=== PATIENT | female | born 1995 | race African-American/Black ===

== ENCOUNTER 2017-07-04 12:53 | Inpatient (IN) ==
[2017-07-04] MEDS: LACTATED RINGERS 1,000 ML IV SCH ×2 (13:20→15:06)
[2017-07-04] MEDS ORDERED: ceFAZolin 2,000 MG in PREMIX 1 EACH IV ONE (13:40)
[2017-07-04] MEDS ORDERED: CITRIC ACID/SODIUM CITRATE 30 ML UDCUP PO ONE (13:40)
[2017-07-04] MEDS ORDERED: hydrALAZINE 20 MG/1 ML VIAL IV SCH (14:00)
[2017-07-04 14:06] LABS: Basophils % 0.3 % (0.0-0.8); Eosinophils # 0.4 10*3/uL (0.0-0.87); Eosinophils % 2.8 % (0.00-10.9); Hematocrit 38.3 VOL% (35.7-47.0); Hemoglobin 12.4 GM/DL (12.0-16.0); Immature Granulocytes Absolute 0.13 #; Lymphocytes # 2.3 10*3/uL (1.4-4.0); Lymphocytes % 18.9 % (21.3-54.2); Mean Corpuscular HGB Conc 32.4 GM/DL (32-36); Mean Corpuscular Hemoglobin 27 PG (27-34); Mean Corpuscular Volume 82.4 FL (87-102); Mean Platelet Volume 11.5 FL (9.6-12.0); Monocytes % 7.8 % (1.7-12.7); Neutrophils # 8.6 10*3/uL (1.4-7.4); Neutrophils % 69.2 % (38.7-73.9); Platelet Count 282 T/CUMM (130-400); Red Blood Count 4.65 MC/CUMM (3.8-5.5); Red Cell Distribution Width 13.7 % (9.3-17.3); White Blood Count 12.4 T/CUMM (4-12)
[2017-07-04] MEDS ORDERED: FAMOTIDINE 20 MG/2 ML VIAL IV ONE (14:20)
[2017-07-04] MEDS ORDERED: ePHEDrine 50 MG/ML AMP IV PRN (14:20)
[2017-07-04] MEDS ORDERED: hydrOXYzine HCL 25 MG/1 ML VIAL IM PRN (14:20)
[2017-07-04] MEDS ORDERED: diphenhydrAMINE 50 MG/1 ML VIAL IV PRN (14:20)
[2017-07-04 14:25] LABS: Albumin 2.9 G/DL (3.4-5.0); Bilirubin,Total 0.8 MG/DL (0.2-1.0); Calcium 9.3 MG/DL (8.5-10.1); Osmolality,Calculated 269.7 MOS/KG (273-304); Potassium 3.4 MMOL/L (3.5-5.1); Total Protein 7.7 G/DL (6.4-8.3)
[2017-07-04] MEDS ORDERED: OXYTOCIN/LR 20 UNIT/1,000 ML BAG IV ONE ×2 (14:27→16:36)
[2017-07-04 14:42] LABS: INR 0.9; PT Patient Result 9.6 SECS; Partial Thromboplastin Time 26.3 SECS (0-40)
[2017-07-04] MEDS ORDERED: OXYTOCIN/LR 30 UNIT/1,000 ML BAG IV ONE (14:57)
[2017-07-04] MEDS ORDERED: OXYTOCIN 10 UNIT/ML VIAL IM ONE (14:57)
[2017-07-04] MEDS ORDERED: MEPERIDINE 50 MG/1 ML VIAL IV PRN (14:59)
[2017-07-04] MEDS ORDERED: ONDANSETRON 4 MG/2 ML VIAL IV PRN ×2 (14:59→16:36)
[2017-07-04] MEDS ORDERED: PROPOFOL 200 MG/20 ML VIAL IV ONE (15:30)
[2017-07-04] MEDS ORDERED: ROCURONIUM 100 MG/10 ML VIAL IV ONE (15:30)
[2017-07-04] MEDS ORDERED: ONDANSETRON 4 MG/2 ML VIAL ONE (15:30)
[2017-07-04] MEDS ORDERED: KETOROLAC 30 MG/1 ML VIAL ONE (15:30)
[2017-07-04] MEDS ORDERED: NEOSTIGMINE 10 MG/10 ML VIAL ONE (15:30)
[2017-07-04] MEDS ORDERED: GLYCOPYRROLATE 0.4 MG/2 ML VIAL ONE (15:30)
[2017-07-04] MEDS ORDERED: DEXAMETHASONE 10 MG/1 ML VIAL ONE (15:30)
[2017-07-04] MEDS ORDERED: PHENYLEPHRINE 1 MG/10 ML SYRINGE IV ONE (15:30)
[2017-07-04] MEDS ORDERED: SUCCINYLCHOLINE 200 MG/10 ML VIAL ONE (15:30)
[2017-07-04] MEDS ORDERED: LIDOCAINE 1% 5 ML VIAL ONE (15:30)
[2017-07-04] MEDS ORDERED: SUGAMMADEX 200 MG/2 ML VIAL IV ONE (16:24)
[2017-07-04] MEDS ORDERED: RHO(D) IMMUNE GLOBULIN 300 MCG SYRINGE IM ONE (16:36)
[2017-07-04] MEDS ORDERED: ACETAMINOPHEN 325 MG TABLET PO PRN (16:36)
[2017-07-04] MEDS ORDERED: SIMETHICONE CHEW 80 MG TABLET PO PRN (16:36)
[2017-07-04] MEDS ORDERED: IBUPROFEN 800 MG TABLET PO PRN (16:36)
[2017-07-04] MEDS ORDERED: fentaNYL 100 MCG/2 ML VIAL ONE (16:38)
[2017-07-04] MEDS ORDERED: MIDAZOLAM 2 MG/2 ML VIAL ONE (16:39)
[2017-07-04 16:49] LABS: Apearance,Urine CLEAR (Clear); Bilirubin,Urine Negative (Negative); Blood, Urine Negative (Negative); Glucose,Urine (UA) Negative (Negative); Ketones,Urine 80 mg/dL (Negative); Mucus,Urine Occasional /LPF (Occasional); Nitrite,Urine Negative (Negative); Protein,Urine Negative; RBC,Urine 1 /HPF (0-4); Squamous Epithelial Cell,Urine Occasional /HPF (0-10); Urine Color Yellow (Yellow); Urine Specific Gravity 1.006 (1.001-1.035); Urine Urobilinogen < 2.0 EU/DL (0.2-1.0); WBC,Urine 1 /HPF (0-6)
[2017-07-04] MEDS ORDERED: LACTATED RINGERS 1,000 ML IV SCH (17:00)
[2017-07-04] MEDS ORDERED: HYDROmorphone PCA 30 MG/30 ML SYRINGE IV SCH (17:00)
[2017-07-04 18:44] LABS: Barbiturates Screen,Urine Negative (Negative); Benzodiazepines Screen,Urine Negative (Negative); Cannabinoid Screen,Urine Negative (Negative); Opiate Screen,Urine Negative (Negative); Phencyclidine Screen,Urine Negative (Negative)
[2017-07-04] MEDS: DOCUSATE SODIUM 100 MG CAPSULE PO SCH (23:03)
[2017-07-04] MEDS: diphenhydrAMINE 50 MG/1 ML VIAL IV PRN (23:14)
[2017-07-05 05:08] LABS: Basophils % 0.2 % (0.0-0.8); Eosinophils # 0.2 10*3/uL (0.0-0.87); Eosinophils % 1.2 % (0.00-10.9); Hematocrit 35.5 VOL% (35.7-47.0); Hemoglobin 11.6 GM/DL (12.0-16.0); Immature Granulocytes % 0.6 %; Immature Granulocytes Absolute 0.09 #; Mean Corpuscular HGB Conc 32.7 GM/DL (32-36); Mean Corpuscular Hemoglobin 26 PG (27-34); Mean Corpuscular Volume 80.5 FL (87-102); Mean Platelet Volume 10.5 FL (9.6-12.0); Monocytes % 6.1 % (1.7-12.7); Neutrophils # 12.2 10*3/uL (1.4-7.4); Neutrophils % 78.9 % (38.7-73.9); Platelet Count 246 T/CUMM (130-400); Red Blood Count 4.41 MC/CUMM (3.8-5.5); Red Cell Distribution Width 13.6 % (9.3-17.3); White Blood Count 15.5 T/CUMM (4-12)
[2017-07-05] MEDS: diphenhydrAMINE 50 MG/1 ML VIAL IV PRN (06:08)
[2017-07-05] MEDS: METOCLOPRAMIDE 10 MG/2 ML VIAL IV SCH ×3 (07:57→23:25)
[2017-07-05] MEDS ORDERED: hydrALAZINE 20 MG/1 ML VIAL IV ONE (09:23)
[2017-07-05] MEDS ORDERED: LORazepam 2 MG/1 ML VIAL IV PRN (09:24)
[2017-07-05] MEDS: DOCUSATE SODIUM 100 MG CAPSULE PO SCH ×2 (09:30→21:20)
[2017-07-05] MEDS: CLINDAMYCIN INJ 900 MG in PREMIX 1 EACH IV SCH ×2 (14:59→23:28)
[2017-07-05] MEDS: GENTAMICIN INJ 100 MG in PREMIX 1 EACH IV SCH ×2 (15:23→23:59)
[2017-07-06] MEDS: CLINDAMYCIN INJ 900 MG in PREMIX 1 EACH IV SCH ×3 (06:50→23:15)
[2017-07-06] MEDS: METOCLOPRAMIDE 10 MG/2 ML VIAL IV SCH ×2 (07:37→15:21)
[2017-07-06] MEDS: GENTAMICIN INJ 100 MG in PREMIX 1 EACH IV SCH ×2 (07:42→15:22)
[2017-07-06] MEDS: DOCUSATE SODIUM 100 MG CAPSULE PO SCH ×2 (08:40→21:04)
[2017-07-06] MEDS: MULTIVITAMIN (PRENATAL) TABLET PO SCH (08:40)
[2017-07-06] MEDS: MAGNESIUM HYDROXIDE SUSP 30 ML UDCUP PO PRN (08:41)
[2017-07-07] MEDS: METOCLOPRAMIDE 10 MG TABLET PO SCH ×2 (08:47→08:49)
[2017-07-07] MEDS: MAGNESIUM HYDROXIDE SUSP 30 ML UDCUP PO PRN (08:47)
[2017-07-07] MEDS: MULTIVITAMIN (PRENATAL) TABLET PO SCH (08:49)
[2017-07-07] MEDS: DOCUSATE SODIUM 100 MG CAPSULE PO SCH (08:49)
[2017-07-07 14:02] VITALS: BP 128/80
== END 2017-07-07 11:00 | disposition home or self-care (01) | DRG 766 ==
LOC: N.LDOUT 12:53 → N.LD 12:54 → N.OB 21:00
PROVIDERS: ADMIT Obstetrics & Gynecology; ATTEND Obstetrics & Gynecology
PROC: LDCSECT (ICD-10-PCS; 2017-07-04 15:40)